=== PATIENT | female | born 1985 | race Two or more races ===

== ENCOUNTER → 2020-04-14 | Outpatient (CLI) | payer OTHER | END | disposition home or self-care (01) | LOC: OFIC 805 14:45 | PROVIDERS: ATTEND Otolaryngology | DX: H60.591 Other noninfective acute otitis externa, right ear (principal); H90.41 Sensorineural hearing loss, unilateral, right ear, with unrestricted hearing on the contralateral side; H61.21 Impacted cerumen, right ear ==

== ENCOUNTER 2020-08-02 14:33 | Outpatient (CLI) | payer OTHER | END 2020-08-02 15:44 | disposition home or self-care (01) | LOC: OFIC 805 14:33 | PROVIDERS: ATTEND Otolaryngology Otology & Neurotology | DX: H92.02 Otalgia, left ear (principal); H60.392 Other infective otitis externa, left ear ==